=== PATIENT | female | born 1985 ===

== ENCOUNTER 2020-08-06 09:10 | Outpatient (CLI) | payer OTHER ==
[2020-08-06 20:11] LABS: SARS-CoV-2 PCR by NAA Not Detected (NotDetected)
== END 2020-08-06 09:11 | disposition home or self-care (01) ==
LOC: CSHLAB 09:10
PROVIDERS: ATTEND Obstetrics & Gynecology
DX: Z20.822 Contact with and (suspected) exposure to COVID-19 (principal)
CPT/HCPCS: 87635; U0003; U0005